=== PATIENT | female | born 1980 | race African-American/Black ===

== ENCOUNTER 2016-07-30 18:24 | Emergency (ER) | payer SELFPAY ==
[~2016-07-30] VITALS: Ht 157.5 cm; Wt 100.0 kg
[~2016-07-30 18:24] MED LIST: AMOXICILLIN 8751 TAB PO; ASPIRIN 32325 MG/TAB PO; CEFTIN 250250 MG/TAB PO; CEFTIN500 MG PO; COLACE 100100 MG/CAP PO; DOXYCYCLINE 10100 MG PO; GENTAMICIN EYE D5 ML OU; LEVAQUIN 5500 MG/TA1 PO; MOTRIN 800800 MG/TAB PO; NAPROSYN500 MG PO; NO HOME MEDICATIONS; NORCO 325 MG-51 TAB PO; NORCO 325 MG-7.1 TAB PO; OMNICEF 300MG300 MG PO; PERCOCET 325 MG1 TA2 PO; PHENERGAN 25 TA25 MG PO; TRIAMCINOLONE A15 GM TP; VICODIN 5/5001 UDTAB PO; ZOFRAN 4MG T4 MG/TAB PO; ZOFRAN ODT4 MG PO
[2016-07-30 18:26] VITALS: BP 135/75; TEMP 99.3
[2016-07-30 18:58] LABS: PH 6 (5-8); URINE APPEARANCE Clear; URINE BACTERIA None Seen /hpf; URINE BILIRUBIN Negative (NEGATIVE); URINE BLOOD Negative (NEGATIVE); URINE COLOR Yellow; URINE GLUCOSE Negative (NEGATIVE); URINE KETONE Negative (NEGATIVE); URINE RBC 0-2 /hpf; URINE UROBILINOGEN Negative (NEGATIVE)
[2016-07-30 19:21] LABS: ADJUSTED CALCIUM 8.6 mg/dL (8.4-10.2); ALBUMIN 4.1 gm/dL (3.5-5.0); BILIRUBIN,TOTAL 0.4 mg/dL (0.0-1.0); CALCIUM 8.7 mg/dL (8.4-10.2); CREATININE, serum 0.8 mg/dL (0.52-1.25); POTASSIUM 3.6 mmol/L (3.4-5.0); TOTAL PROTEIN 7.8 gm/dL (6.4-8.2)
[2016-07-30] MEDS ORDERED: ZOFRAN ODT4 MG PO (19:38)
[2016-07-30] MEDS ORDERED: CIPRO 500MG TA500 MG PO (19:38)
[2016-07-30] MEDS ORDERED: NORCO 325 MG-51 TAB PO (19:38)
[2016-07-30 19:57] VITALS: PULSE 78
== END 2016-07-30 19:57 | disposition home or self-care (01) ==
LOC: COL.ER 18:24
PROVIDERS: Nurse Practitioner
DX: N39.0 Urinary tract infection, site not specified (principal); B96.20 Unspecified Escherichia coli [E. coli] as the cause of diseases classified elsewhere; Z87.891 Personal history of nicotine dependence; Z90.49 Acquired absence of other specified parts of digestive tract; Z98.890 Other specified postprocedural states
CPT/HCPCS: J1885; J2405; J7030

== ENCOUNTER 2016-10-01 13:52 | Emergency (ER) | payer SELFPAY ==
[~2016-10-01] VITALS: Ht 157.5 cm; Wt 104.5 kg
[~2016-10-01 13:52] MED LIST changes: +CIPRO 500MG TA500 MG PO
[2016-10-01 13:55] VITALS: TEMP 98.9
[2016-10-01 14:48] LABS: BASO % 0.4 % (0.0-2.0); EOS # 0.1 (0.0-0.7); EOS % 1.2 % (0-4.0); GRAN # 2.9 (1.4-6.5); GRAN % 59.6 % (42.2-75.2); LYMPH # 1.6 (1.2-3.4); LYMPH % 33.5 % (20.0-51.0); MEAN CELL VOLUME 86 fl (80.0-100.0); MEAN CORPUSCULAR HGB CONC 33 g/dl (33.0-37.0); MEAN PLATELET VOLUME 10.6 fl (7.4-10.4); MONO # 0.3 (0.1-0.6); MONO % 5.1 % (1.7-9.3); PLATELET COUNT 218 K/mm3 (130-400); REDCELL DISTRIBUTION WIDTH-CV 14.3 % (11.5-14.5); WHITE BLOOD COUNT 4.9 K/mm3 (4.8-10.8)
[2016-10-01 14:49] LABS: HEMATOCRIT 35.3 % (37.0-47.0); HEMOGLOBIN 11.7 g/dl (12.5-16.0); MEAN CORPUSCULAR HEMOGLOBIN 29 pg (27.0-31.0)
[2016-10-01 14:59] LABS: ADJUSTED CALCIUM 8.9 mg/dL (8.4-10.2); ALBUMIN 4.4 gm/dL (3.5-5.0); BILIRUBIN,TOTAL 0.5 mg/dL (0.0-1.0); CALCIUM 9.2 mg/dL (8.4-10.2); CREATININE, serum 0.86 mg/dL (0.52-1.25); POTASSIUM 3.6 mmol/L (3.4-5.0); TOTAL PROTEIN 8.1 gm/dL (6.4-8.2)
[2016-10-01 15:31] LABS: PH 6 (5-8); SQUAMOUS EPITHELIAL 0-2 /hpf; URINE APPEARANCE Clear; URINE BACTERIA Rare /hpf; URINE BILIRUBIN Negative (NEGATIVE); URINE BLOOD Negative (NEGATIVE); URINE COLOR Straw; URINE GLUCOSE Negative (NEGATIVE); URINE KETONE Negative (NEGATIVE); URINE RBC 0-2 /hpf; URINE UROBILINOGEN Negative (NEGATIVE)
[2016-10-01] MEDS ORDERED: NORCO 325 MG-7.1 TAB PO (16:58)
[2016-10-01] MEDS ORDERED: ZOFRAN ODT4 MG PO (16:59)
[2016-10-01 17:18] VITALS: BP 116/71; PULSE 70
== END 2016-10-01 17:21 | disposition home or self-care (01) ==
LOC: COL.ER 13:52
PROVIDERS: Nurse Practitioner
DX: R10.32 Left lower quadrant pain (principal); R29.898 Other symptoms and signs involving the musculoskeletal system; Z87.442 Personal history of urinary calculi
CPT/HCPCS: J1170; J1885; J2405; J2550; J7030; Q9967

== ENCOUNTER 2016-10-04 12:08 | Emergency (ER) | payer SELFPAY ==
[~2016-10-04] VITALS: Ht 157.5 cm; Wt 100.0 kg
[2016-10-04 12:18] VITALS: BP 141/74; TEMP 98.9
[2016-10-04] MEDS ORDERED: PREDNISONE20 MG PO (12:45)
[2016-10-04 15:09] VITALS: PULSE 87
== END 2016-10-04 15:10 | disposition home or self-care (01) ==
LOC: COL.ER 12:08
DX: T78.40XA Allergy, unspecified, initial encounter (principal); Z87.442 Personal history of urinary calculi
CPT/HCPCS: J7512

== ENCOUNTER 2017-02-23 07:09 | Emergency (ER) | payer SELFPAY ==
[~2017-02-23] VITALS: Ht 157.5 cm; Wt 100.0 kg
[~2017-02-23 07:09] MED LIST changes: +PREDNISONE20 MG PO
[2017-02-23 07:13] VITALS: BP 113/63; TEMP 98.7
[2017-02-23 08:16] LABS: INFLUENZA A NEGATIVE; INFLUENZA B NEGATIVE
[2017-02-23] MEDS ORDERED: TESSALON P100 MG/CAP PO (08:22)
[2017-02-23 08:37] VITALS: PULSE 91
== END 2017-02-23 08:37 | disposition home or self-care (01) ==
LOC: COL.ER 07:09
PROVIDERS: Nurse Practitioner Primary Care
DX: J06.9 Acute upper respiratory infection, unspecified (principal); Z87.891 Personal history of nicotine dependence; Z98.51 Tubal ligation status; Z90.49 Acquired absence of other specified parts of digestive tract; Z98.890 Other specified postprocedural states; Z90.89 Acquired absence of other organs

== ENCOUNTER 2017-04-12 13:27 | Emergency (ER) | payer BC ==
[~2017-04-12] VITALS: Ht 157.5 cm; Wt 95.0 kg
[~2017-04-12 13:27] MED LIST changes: +TESSALON P100 MG/CAP PO
[2017-04-12 13:44] VITALS: BP 109/70; TEMP 98.6
[2017-04-12 16:28] LABS: BASO % 0.8 % (0.0-2.0); EOS % 0.8 % (0-4.0); GRAN # 2.8 (1.4-6.5); GRAN % 52.8 % (42.2-75.2); HEMATOCRIT 37.2 % (37.0-47.0); LYMPH # 2.1 (1.2-3.4); LYMPH % 39.1 % (20.0-51.0); MEAN CELL VOLUME 90 fl (80.0-100.0); MEAN CORPUSCULAR HEMOGLOBIN 29 pg (27.0-31.0); MEAN CORPUSCULAR HGB CONC 32 g/dl (33.0-37.0); MEAN PLATELET VOLUME 10.4 fl (7.4-10.4); MONO # 0.3 (0.1-0.6); MONO % 6.3 % (1.7-9.3); PLATELET COUNT 209 K/mm3 (130-400); RED BLOOD COUNT 4.13 M/mm3 (4.10-5.30); REDCELL DISTRIBUTION WIDTH-CV 13.3 % (11.5-14.5)
[2017-04-12 16:37] LABS: ALBUMIN 4.8 gm/dL (3.5-5.0); BILIRUBIN,TOTAL 0.4 mg/dL (0.0-1.0); C-REACTIVE PROTEIN 0.6 mg/dL (0.0-0.9); CALCIUM 9.1 mg/dL (8.4-10.2); CREATININE, serum 0.86 mg/dL (0.52-1.25); POTASSIUM 4.1 mmol/L (3.4-5.0); TOTAL PROTEIN 8.5 gm/dL (6.4-8.2)
[2017-04-12] MEDS ORDERED: NORCO 325 MG-51 TAB PO (18:48)
[2017-04-12] MEDS ORDERED: ZOFRAN ODT4 MG PO (18:48)
[2017-04-12 19:30] VITALS: PULSE 66
== END 2017-04-12 19:30 | disposition home or self-care (01) ==
LOC: COL.ER 13:27
PROVIDERS: Emergency Medicine
DX: K92.1 Melena (principal); Z87.891 Personal history of nicotine dependence; Z98.51 Tubal ligation status; Z90.49 Acquired absence of other specified parts of digestive tract; Z90.89 Acquired absence of other organs; Z98.890 Other specified postprocedural states
CPT/HCPCS: C9113; J2405; J7030; Q9967

== ENCOUNTER 2017-06-10 15:39 | Emergency (ER) | payer BC ==
[~2017-06-10] VITALS: Ht 157.5 cm; Wt 90.0 kg
[2017-06-10] MEDS ORDERED: CARAFATE 1GM1 G PO (16:03)
[2017-06-10 16:22] VITALS: BP 124/67; TEMP 98.4
[2017-06-10 16:41] LABS: BASO % 0.4 % (0.0-2.0); EOS % 0.6 % (0-4.0); GRAN # 2.2 (1.4-6.5); GRAN % 46.9 % (42.2-75.2); LYMPH # 2.1 (1.2-3.4); LYMPH % 45.1 % (20.0-51.0); MEAN CELL VOLUME 87 fl (80.0-100.0); MEAN CORPUSCULAR HGB CONC 34 g/dl (33.0-37.0); MEAN PLATELET VOLUME 10.3 fl (7.4-10.4); MONO # 0.3 (0.1-0.6); MONO % 6.8 % (1.7-9.3); PLATELET COUNT 196 K/mm3 (130-400); RED BLOOD COUNT 3.83 M/mm3 (4.10-5.30); REDCELL DISTRIBUTION WIDTH-CV 13.3 % (11.5-14.5)
[2017-06-10 16:42] LABS: HEMATOCRIT 33.2 % (37.0-47.0); HEMOGLOBIN 11.2 g/dl (12.5-16.0); MEAN CORPUSCULAR HEMOGLOBIN 29 pg (27.0-31.0)
[2017-06-10 16:51] LABS: ALANINE AMINOTRANSFERASE 29 U/L (9-52); ALKALINE PHOSPHATASE 65 U/L (50-136); ANION GAP 11 mmol/L (7-16); AST,SGOT 17 U/L (15-37); BILIRUBIN,TOTAL 0.2 mg/dL (0.0-1.0); BLOOD UREA NITROGEN 8 mg/dL (7-17); CALCIUM 8.7 mg/dL (8.4-10.2); CARBON DIOXIDE 23 mmol/L (22-30); CHLORIDE 108 mmol/L (98-107); CREATININE, serum 0.86 mg/dL (0.52-1.25); GLUCOSE 95 mg/dL (74-106); POTASSIUM 3.8 mmol/L (3.4-5.0); SODIUM 142 mmol/L (137-145); TOTAL PROTEIN 7.9 gm/dL (6.4-8.2)
[2017-06-10 16:59] LABS: C-REACTIVE PROTEIN < 0.5 mg/dL (0.0-0.9)
[2017-06-10 18:56] VITALS: PULSE 68
== END 2017-06-10 18:57 | disposition home or self-care (01) ==
LOC: COL.ER 15:39
PROVIDERS: Physician Assistant
DX: K29.70 Gastritis, unspecified, without bleeding (principal); K64.9 Unspecified hemorrhoids; Z90.89 Acquired absence of other organs; Z90.49 Acquired absence of other specified parts of digestive tract
CPT/HCPCS: C9113; J2270; J2405; J3010; J7030

== ENCOUNTER 2017-08-24 11:50 | Emergency (ER) | payer BC ==
[~2017-08-24] VITALS: Ht 157.5 cm; Wt 84.1 kg
[~2017-08-24 11:50] MED LIST changes: +CARAFATE 1GM1 G PO
[2017-08-24 11:56] VITALS: TEMP 98.1
[2017-08-24] MEDS ORDERED: PRILOSEC 20MG20 MG PO (12:03)
[2017-08-24 12:22] LABS: COLLECTION METHOD CLEAN CATCH
[2017-08-24 12:26] LABS: BASO % 0.5 % (0.0-2.0); EOS % 0.8 % (0-4.0); GRAN # 1.7 (1.4-6.5); GRAN % 43.3 % (42.2-75.2); HEMOGLOBIN 11.5 g/dl (12.5-16.0); LYMPH # 1.9 (1.2-3.4); LYMPH % 47.3 % (20.0-51.0); MEAN CELL VOLUME 87 fl (80.0-100.0); MEAN CORPUSCULAR HEMOGLOBIN 30 pg (27.0-31.0); MEAN CORPUSCULAR HGB CONC 34 g/dl (33.0-37.0); MEAN PLATELET VOLUME 10.6 fl (7.4-10.4); MONO # 0.3 (0.1-0.6); MONO % 7.8 % (1.7-9.3); PLATELET COUNT 203 K/mm3 (130-400); RED BLOOD COUNT 3.87 M/mm3 (4.10-5.30); REDCELL DISTRIBUTION WIDTH-CV 13.2 % (11.5-14.5)
[2017-08-24 12:28] LABS: HEMATOCRIT 33.8 % (37.0-47.0)
[2017-08-24 12:38] LABS: MUCOUS Present /lpf; PH 5 (5-8); URINE APPEARANCE Hazy; URINE BACTERIA Rare /hpf; URINE BILIRUBIN Negative (NEGATIVE); URINE BLOOD Negative (NEGATIVE); URINE COLOR Yellow; URINE GLUCOSE Negative (NEGATIVE); URINE KETONE Trace (NEGATIVE); URINE LEUKOCYTE ESTERASE Negative (NEGATIVE); URINE NITRATE Negative (NEGATIVE); URINE PROTEIN(semi-quant) Negative (NEGATIVE); URINE UROBILINOGEN >=4.0 mg/dL (NEGATIVE)
[2017-08-24 12:40] LABS: BILIRUBIN,TOTAL 0.6 mg/dL (0.0-1.0); C-REACTIVE PROTEIN 0.7 mg/dL (0.0-0.9); CALCIUM 9.1 mg/dL (8.4-10.2); CREATININE, serum 0.76 mg/dL (0.52-1.25); POTASSIUM 3.6 mmol/L (3.4-5.0); TOTAL PROTEIN 8.2 gm/dL (6.4-8.2)
[2017-08-24] MEDS ORDERED: REGLAN 10MG10 MG/TAB PO (14:09)
[2017-08-24 14:33] VITALS: BP 114/62; PULSE 92
== END 2017-08-24 14:34 | disposition home or self-care (01) ==
LOC: COL.ER 11:50
PROVIDERS: Emergency Medicine
DX: R10.10 Upper abdominal pain, unspecified (principal); G43.909 Migraine, unspecified, not intractable, without status migrainosus; Z87.891 Personal history of nicotine dependence; Z98.51 Tubal ligation status; Z90.49 Acquired absence of other specified parts of digestive tract; Z90.89 Acquired absence of other organs; Z98.890 Other specified postprocedural states
CPT/HCPCS: J2270; J2405; J2765; J7030

== ENCOUNTER 2017-10-06 13:10 | Emergency (ER) | payer BC ==
[~2017-10-06] VITALS: Ht 157.5 cm; Wt 85.9 kg
[~2017-10-06 13:10] MED LIST changes: +PRILOSEC 20MG20 MG PO; +REGLAN 10MG10 MG/TAB PO
[2017-10-06 13:13] VITALS: TEMP 98.1
[2017-10-06 13:46] LABS: BASO % 0.4 % (0.0-2.0); EOS % 0.8 % (0-4.0); GRAN # 2.6 (1.4-6.5); GRAN % 52.5 % (42.2-75.2); HEMOGLOBIN 11.1 g/dl (12.5-16.0); LYMPH # 1.9 (1.2-3.4); LYMPH % 39.6 % (20.0-51.0); MEAN CELL VOLUME 88 fl (80.0-100.0); MEAN CORPUSCULAR HEMOGLOBIN 30 pg (27.0-31.0); MEAN CORPUSCULAR HGB CONC 34 g/dl (33.0-37.0); MEAN PLATELET VOLUME 10.5 fl (7.4-10.4); MONO # 0.3 (0.1-0.6); MONO % 6.5 % (1.7-9.3); PLATELET COUNT 191 K/mm3 (130-400); RED BLOOD COUNT 3.74 M/mm3 (4.10-5.30); REDCELL DISTRIBUTION WIDTH-CV 13.4 % (11.5-14.5)
[2017-10-06 13:48] LABS: HEMATOCRIT 32.8 % (37.0-47.0)
[2017-10-06 14:10] LABS: ALBUMIN 3.9 gm/dL (3.5-5.0); BILIRUBIN,TOTAL 0.2 mg/dL (0.0-1.0); CALCIUM 8.5 mg/dL (8.4-10.2); CREATININE, serum 0.75 mg/dL (0.52-1.25); POTASSIUM 3.6 mmol/L (3.4-5.0); TOTAL PROTEIN 7.3 gm/dL (6.4-8.2)
[2017-10-06 16:58] VITALS: BP 93/56; PULSE 66
== END 2017-10-06 17:02 | disposition home or self-care (01) ==
LOC: COL.ER 13:10
PROVIDERS: Emergency Medicine
DX: G43.909 Migraine, unspecified, not intractable, without status migrainosus (principal); K21.9 Gastro-esophageal reflux disease without esophagitis; F17.210 Nicotine dependence, cigarettes, uncomplicated; Z98.51 Tubal ligation status; Z90.49 Acquired absence of other specified parts of digestive tract; Z90.89 Acquired absence of other organs
CPT/HCPCS: J1170; J1885; J2765; J3010; J7030

== ENCOUNTER → 2017-12-01 | Outpatient (CLI) | payer BC | LOC: COL.CARD 09:50 | DX: G43.409 Hemiplegic migraine, not intractable, without status migrainosus (principal); R53.1 Weakness ==

== ENCOUNTER 2023-05-27 13:39 | Emergency (ER) | payer MEDICAID ==
[~2023-05-27] VITALS: Ht 157.5 cm; Wt 90.0 kg
[2023-05-27 13:55] VITALS: TEMP 97.9
[2023-05-27] MEDS ORDERED: oxyCODONE/Acetaminophen 5-325 MG TAB PO ONE (15:30)
[2023-05-27] MEDS ORDERED: NORCO 325 MG-51 TAB PO (16:12)
[2023-05-27] MEDS ORDERED: MOTRIN 800800 MG/TAB PO (16:12)
[2023-05-27 16:21] VITALS: BP 124/66; PULSE 61
== END 2023-05-27 16:35 | disposition home or self-care (01) ==
LOC: COL.ER 13:39
DX: S63.501A Unspecified sprain of right wrist, initial encounter (principal); W19.XXXA Unspecified fall, initial encounter

== ENCOUNTER 2023-07-19 20:39 | Emergency (ER) | payer MEDICAID ==
[~2023-07-19] VITALS: Ht 157.5 cm; Wt 86.4 kg
[2023-07-19 20:50] VITALS: TEMP 98.5
[2023-07-19] MEDS ORDERED: ZITHROMAX Z PA250 MG PO (21:23)
[2023-07-19] MEDS ORDERED: TESSALON PERLE200 MG PO (21:23)
[2023-07-19 21:26] VITALS: BP 106/75; PULSE 75
[2023-07-19] MEDS ORDERED: guaiFENesin/Dextromethorphan Oral Soln 200-20 MG/10 ML UD PO ONE (21:30)
[2023-07-19] MEDS ORDERED: Azithromycin 250 MG TAB PO ONE (21:30)
== END 2023-07-19 21:49 | disposition home or self-care (01) ==
LOC: COL.ER 20:39
DX: J20.9 Acute bronchitis, unspecified (principal); F17.210 Nicotine dependence, cigarettes, uncomplicated